=== PATIENT | female | born 2000 | race African-American/Black ===

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

== ENCOUNTER 2021-04-21 09:28 | Emergency (ER) | payer OTHER ==
[2021-04-21 11:20] LABS: Bacteria/HPF 1+ HPF (None Seen); Bilirubin Negative (Negative); Blood, Urine 2+ (Negative); Clarity Clear (Clear); Glucose, Urine (Dipstick) Normal (Negative); Ketone, Urine Negative (Negative); Leukocyte 75 Leu/uL (Negative); Nitrite Negative (Negative); Protein, Urine (Dipstick) 20 mg/dL (Neg-Trace); RBC/HPF Greater than 50 HPF (0-3); Squamous Epithelial 0-3 HPF (0-3)
[2021-04-21 11:22] LABS: Pregnancy Test - Urine (BHCG) Negative (Negative); Pregu Control Background? CLEAR/WHITE (CLR/WHITE); Pregu Control Bar Appear? YES (CONTROL BAR)
[2021-04-25 21:19] LABS: Chlamydia by PCR DETECTED (NotDetected); GC by PCR Not Detected (NotDetected)
== END 2021-04-21 12:30 | disposition home or self-care (01) ==
LOC: ERS 09:28
DX: N89.8 Other specified noninflammatory disorders of vagina (principal); N94.6 Dysmenorrhea, unspecified
CPT/HCPCS: 81003; 81015; 81025; 87086; 87480; 87491; 87510; 87591; 87660; 99283

== ENCOUNTER 2021-09-11 10:49 | Emergency (ER) | payer OTHER ==
[2021-09-11] MEDS ORDERED: Mag-Al 1200 mg/1200 mg/30 ML UDCUP ONE (12:42)
== END 2021-09-11 12:50 | disposition home or self-care (01) ==
LOC: ERS 10:49
DX: B34.9 Viral infection, unspecified (principal); J45.909 Unspecified asthma, uncomplicated
CPT/HCPCS: 87081; 87430; 99283

== ENCOUNTER 2021-09-21 06:51 | Emergency (ER) | payer OTHER ==
[2021-09-21] MEDS ORDERED: Mag-Al 1200 mg/1200 mg/30 ML UDCUP ONE (07:35)
[2021-09-21] MEDS ORDERED: Lidocaine Viscous Sol 2% 15 ml UD Cup ONE (07:35)
[2021-09-21 08:06] LABS: Bacteria/HPF 1+ HPF (None Seen); Bilirubin Negative (Negative); Blood, Urine 3+ (Negative); Clarity Clear (Clear); Glucose, Urine (Dipstick) Normal (Negative); Ketone, Urine Negative (Negative); Leukocyte Negative Leu/uL (Negative); Nitrite Negative (Negative); Pregnancy Test - Urine (BHCG) Negative (Negative); Pregu Control Background? CLEAR/WHITE (CLR/WHITE); Pregu Control Bar Appear? YES (CONTROL BAR); Protein, Urine (Dipstick) 30 mg/dL (Neg-Trace); RBC/HPF 21-50 HPF (0-3); Specific Gravity 1.038 (1.002-1.036); Specific Gravity, Urine 1.038 (1.002-1.036); Urobilinogen 3 mg/dL (Less than 2)
== END 2021-09-21 08:59 | disposition home or self-care (01) ==
LOC: ERS 06:51
DX: K21.9 Gastro-esophageal reflux disease without esophagitis (principal); J45.909 Unspecified asthma, uncomplicated; D64.9 Anemia, unspecified
CPT/HCPCS: 81003; 81015; 81025; 99284

== ENCOUNTER 2021-10-28 17:10 | Emergency (ER) | payer OTHER | END 2021-10-28 17:54 | disposition home or self-care (01) | LOC: ERS 17:10 | DX: U07.1 COVID-19 (principal); J06.9 Acute upper respiratory infection, unspecified; D64.9 Anemia, unspecified | CPT/HCPCS: 87804; 99283; U0003; U0005 ==

== ENCOUNTER 2022-04-19 00:36 | Emergency (ER) | payer OTHER | END 2022-04-19 01:46 | disposition home or self-care (01) | LOC: ERS 00:36 | DX: M65.9 Synovitis and tenosynovitis, unspecified (principal) | CPT/HCPCS: 99283 ==

== ENCOUNTER 2025-01-06 22:31 | Emergency (ER) | payer MEDICAID, SELFPAY ==
[2025-01-07] MEDS ORDERED: Ibuprofen 200 MG TAB ONE (01:21)
== END 2025-01-07 01:30 | disposition home or self-care (01) ==
LOC: ERS 22:31
DX: N64.4 Mastodynia (principal)